=== PATIENT | male | born 1955 | race African-American/Black ===

== ENCOUNTER 2017-03-10 09:00 | Emergency (ER) | payer OTHER ==
[~2017-03-10] VITALS: Ht 185.4 cm; Wt 68.2 kg
[2017-03-10 09:12] LABS: GLUCOSE,POINT OF CARE 94 MG/DL (70-110)
[2017-03-10] MEDS ORDERED: ALBU8.5H8 IH (09:22)
[2017-03-10] MEDS ORDERED: ASPI81TA42 PO (09:22)
[2017-03-10] MEDS ORDERED: OXYB5 PO (09:22)
[2017-03-10] MEDS ORDERED: FLUO-191 PO (09:22)
[2017-03-10] MEDS ORDERED: MELO-107 PO (09:22)
[2017-03-10] MEDS ORDERED: TAMS0.4C32 PO (09:22)
[2017-03-10] MEDS ORDERED: TIOT185 IH (09:22)
[2017-03-10] MEDS ORDERED: METF500T4 PO (09:22)
[2017-03-10] MEDS ORDERED: SODIUM CHLORIDE 0.9% 1,000 ML IV ONE (11:00)
[2017-03-10] MEDS ORDERED: ACETAMINOPHEN 500 MG TABLET PO ONE (11:15)
[2017-03-10 11:32] VITALS: BP 134/84
== END 2017-03-10 11:42 | disposition home or self-care (01) ==
LOC: EMS 09:02
DX: M79.671 Pain in right foot (principal); M79.672 Pain in left foot; M79.601 Pain in right arm; M79.602 Pain in left arm; J44.9 Chronic obstructive pulmonary disease, unspecified; E11.9 Type 2 diabetes mellitus without complications; E78.00 Pure hypercholesterolemia, unspecified; I10 Essential (primary) hypertension; F17.210 Nicotine dependence, cigarettes, uncomplicated
CPT/HCPCS: 82962; 99282; 99406; J7030